=== PATIENT | female | born 1980 | race African-American/Black ===

== ENCOUNTER → 2017-04-06 | Outpatient (CLI) | payer OTHER ==
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
== END | disposition home or self-care (01) ==
LOC: CRAD 10:48
DX: M25.511 Pain in right shoulder (principal)
CPT/HCPCS: 73030